=== PATIENT | female | born 1950 | race Caucasian/White ===

== ENCOUNTER 2016-08-12 00:12 | Inpatient (IN) | payer OTHER ==
[~2016-08-12] VITALS: Ht 162.6 cm; Wt 99.6 kg
[2016-08-12] MEDS ORDERED: LISINOPRIL10 MG PO (02:02)
[2016-08-12] MEDS ORDERED: VITAMIN D250000 UNIT PO (02:02)
[2016-08-12] MEDS ORDERED: RANEXA1000 MG PO (02:02)
[2016-08-12] MEDS ORDERED: SYNTHROID 125125 MCG PO (02:03)
[2016-08-12] MEDS ORDERED: LOPRESSOR 25 MG25 MG PO (02:03)
[2016-08-12] MEDS ORDERED: NITRO-DUR 0.2 MG1 EA TD (02:04)
[2016-08-12] MEDS ORDERED: TRAZODONE HCL100 MG PO (02:04)
[2016-08-12 11:36] LABS: BUN/CREATININE RATIO 10 (0-10)
[2016-08-12 17:25] LABS: BUN/CREATININE RATIO 13 (0-10)
[2016-08-12 23:32] LABS: BUN/CREATININE RATIO 11 (0-10)
[2016-08-13 05:46] LABS: BUN/CREATININE RATIO 13 (0-10)
[2016-08-14 06:21] LABS: BUN/CREATININE RATIO 10 (0-10)
[2016-08-14] MEDS ORDERED: ASPIRIN81 MG PO (13:26)
== END 2016-08-14 15:30 | disposition home or self-care (01) | DRG 640 ==
LOC: PROG CARE 00:12 → CCU 01:29 → PROG CARE 01:29 → M/S 08-13 19:42
PROVIDERS: Family Medicine; ADMIT Internal Medicine
DX: E87.1 Hypo-osmolality and hyponatremia (principal); I21.4 Non-ST elevation (NSTEMI) myocardial infarction; G92 Toxic encephalopathy; R07.89 Other chest pain; I49.8 Other specified cardiac arrhythmias; I25.10 Atherosclerotic heart disease of native coronary artery without angina pectoris; T39.95XA Adverse effect of unspecified nonopioid analgesic, antipyretic and antirheumatic, initial encounter; I10 Essential (primary) hypertension; E78.5 Hyperlipidemia, unspecified; Y92.230 Patient room in hospital as the place of occurrence of the external cause; F17.210 Nicotine dependence, cigarettes, uncomplicated; E66.9 Obesity, unspecified; Z68.37 Body mass index [BMI] 37.0-37.9, adult; Z95.1 Presence of aortocoronary bypass graft; Z95.5 Presence of coronary angioplasty implant and graft; K59.00 Constipation, unspecified; J44.9 Chronic obstructive pulmonary disease, unspecified; E03.9 Hypothyroidism, unspecified; M51.36 Other intervertebral disc degeneration, lumbar region; F41.9 Anxiety disorder, unspecified; Z72.3 Lack of physical exercise; Z88.5 Allergy status to narcotic agent; Z86.73 Personal history of transient ischemic attack (TIA), and cerebral infarction without residual deficits; Z88.6 Allergy status to analgesic agent; Z88.0 Allergy status to penicillin; Z88.8 Allergy status to other drugs, medicaments and biological substances; Z91.041 Radiographic dye allergy status; Z79.899 Other long term (current) drug therapy; Z82.3 Family history of stroke; Z82.49 Family history of ischemic heart disease and other diseases of the circulatory system
CPT/HCPCS: 36415; 80048; 80307; 82550; 82553; 83930; 83935; 84300; 84443; 84484; 93005; J1650; J7030

== ENCOUNTER 2021-05-06 09:37 | Inpatient (IN) | payer MEDICARE ==
[~2021-05-06] VITALS: Ht 162.6 cm; Wt 108.4 kg
[~2021-05-06 09:37] MED LIST: ADVAIR 250-501 EACH INH; ASPIRIN81 MG PO; CLONIDINE HCL0.1 MG PO; LASIX40 MG PO; LISINOPRIL20 MG PO; LOPRESSOR 25 MG25 MG PO; NITRO-DUR 0.2 MG1 EA TD; PERCOCET 5-3251 EACH PO; PREDNISONE10 M1 PO; PROTONIX 20 MG20 MG PO; RANEXA500 MG PO; SYNTHROID125 MCG PO; TRAZODONE HCL100 MG PO; XANAX 0.25 MG0.25 MG PO
[2021-05-06 11:37] LABS: RED BLOOD COUNT 3.79 M/UL (4.00-5.10); WHITE BLOOD COUNT 6.3 K/UL (4.5-11.0)
[2021-05-06 12:21] LABS: BUN/CREATININE RATIO 12 (0-10)
[2021-05-06] MEDS ORDERED: ATIVAN 1MG TABLE1 MG PO (16:56)
[2021-05-06] MEDS ORDERED: PHENERGAN 25 MG25 M1 PO (16:57)
[2021-05-06] MEDS ORDERED: NITROGLYCERIN0.4 MG SL (16:57)
[2021-05-06] MEDS ORDERED: HYDROCODON-ACE1 EAC6 PO (16:57)
[2021-05-06 20:45] LABS: BUN/CREATININE RATIO 10 (0-10)
[2021-05-06 22:47] LABS: BUN/CREATININE RATIO 11 (0-10)
[2021-05-07 07:05] LABS: HEMOGLOBIN 11.8 gm/dl (12.3-15.3); RED BLOOD COUNT 3.75 M/UL (4.00-5.10); WHITE BLOOD COUNT 5.3 K/UL (4.5-11.0)
[2021-05-07 08:09] LABS: BUN/CREATININE RATIO 11 (0-10)
[2021-05-07 10:32] LABS: BUN/CREATININE RATIO 10 (0-10)
[2021-05-07 14:27] LABS: BUN/CREATININE RATIO 14 (0-10)
[2021-05-08 04:36] LABS: HEMOGLOBIN 11.6 gm/dl (12.3-15.3); RED BLOOD COUNT 3.71 M/UL (4.00-5.10)
[2021-05-08] MEDS ORDERED: ATIVAN 1MG TABLE1 MG PO (10:09)
== END 2021-05-08 11:59 | disposition home or self-care (01) | DRG 191 ==
LOC: ER1 09:37 → CDU 16:06 → CCU 23:38 → MED SURG 4 05-07 14:39
PROVIDERS: Physician Assistant; Physician Assistant Medical; ADMIT Internal Medicine Infectious Disease
PROC: XW033H5 Introduction of Tocilizumab into Peripheral Vein, Percutaneous Approach, New Technology Group 5 (ICD-10-PCS; principal; 2021-05-06)
DX: J44.1 Chronic obstructive pulmonary disease with (acute) exacerbation (principal); E87.1 Hypo-osmolality and hyponatremia; Z68.41 Body mass index [BMI] 40.0-44.9, adult; Z20.822 Contact with and (suspected) exposure to COVID-19; R63.1 Polydipsia; F17.210 Nicotine dependence, cigarettes, uncomplicated; F41.9 Anxiety disorder, unspecified; F32.A Depression, unspecified; I11.0 Hypertensive heart disease with heart failure; I50.9 Heart failure, unspecified; E66.9 Obesity, unspecified; I25.10 Atherosclerotic heart disease of native coronary artery without angina pectoris; Z95.1 Presence of aortocoronary bypass graft; Z79.01 Long term (current) use of anticoagulants; Z79.82 Long term (current) use of aspirin; Z71.6 Tobacco abuse counseling; Z90.49 Acquired absence of other specified parts of digestive tract; Z98.890 Other specified postprocedural states; Z88.8 Allergy status to other drugs, medicaments and biological substances; Z88.6 Allergy status to analgesic agent; Z86.73 Personal history of transient ischemic attack (TIA), and cerebral infarction without residual deficits; Z82.3 Family history of stroke; Z23 Encounter for immunization
CPT/HCPCS: 36415; 70551; 71045; 71046; 80048; 80053; 81001; 82550; 82553; 83690; 83735; 83874; 83880; 84484; 85025; 85027; 85610; 85652; 86140; 87086; 93005; 94640; 94664; 94760; 96374; 99285; J1956; J2060; Q0249; U0002